=== PATIENT | female | born 1950 | race Caucasian/White ===

== ENCOUNTER 2018-04-22 17:44 | Inpatient (IN) | payer MEDICARE, OTHER ==
[~2018-04-22] VITALS: Ht 157.5 cm; Wt 60.8 kg
[2018-04-22] MEDS ORDERED: LEVA15HF4 INH (18:18)
[2018-04-22] MEDS ORDERED: GABA-532 PO (18:18)
[2018-04-22] MEDS ORDERED: FLUT16SP BNOSTRILS (18:18)
[2018-04-22] MEDS ORDERED: CYCL10TA9 PO (18:18)
[2018-04-22] MEDS ORDERED: MAGNESIUM HYDROXIDE 30 ML UDC PO PRN (18:30)
[2018-04-22] MEDS ORDERED: ACETAMINOPHEN 325 MG TABLET PO PRN (18:30)
[2018-04-22] MEDS ORDERED: MAG HYDROX/AL HYDROX/SIMETH 30 ML UDC PO PRN (18:30)
[2018-04-22 18:44] VITALS: BP 150/74
--- NOTE | 2018-04-22 18:45 | NUR ---
PT. ARRIVED IN THE UNIT VIA A WHEELCHAIR FROM ER AND WHEELED BY ER STAFF. PT. CAME FROM [facility] AND ADMITTED ON [address] SWEET MADE AWARE OF THE ADMISSION, CONTRABAND DONE, V/S TAKEN AND WILL ENDORSE TO THE INCOMING NURSE FOR THE COMPLETION OF THE ADMISSION.
--- NOTE | 2018-04-22 19:30 | NUR ---
ADMITTED A 68 Y/O FEMALE FROM [facility], ON 5150 HOLD GD, BASED ON HOLD, PATIENT INCREASED PARANOIA, INCREASED CONFUSION AND HEARING VOICES. PATIENT ADMITTING DX. PSYCHOSIS, MEDICAL DX. ALZHEIMERS, DEMENTIA, ARTHRITIS, ASTHMA, CHRONIC PAIN, IBS, FIBROMYALGIA, OSTEOPENIA, PSORIASIS. UPON FACE TO FACE EVALUATION, PATIENT APPEARED CONFUSED, GUARDED, EASILY AGITATED, DENIES SI/HI/AH/VH, REDIRECTIBLE. BODY CHECK DONE, PICTURE DONE, NO SOB, NO ACUTE DISTRESS, BREATHING EVEN AND UNLABORED, NO S/S OF PAIN AND DISCOMFORT, NOTIFIED FLOOR RUNNER NELSY TO RECONCILE MEDICATION, PATIENT SIGNED PAPER WORKS. ALL NEEDS ATTENDED AND MET, WILL CONTINUE TO MONITOR [id number] FOR SAFETY
[2018-04-22] MEDS ORDERED: FLUTICASONE PROPIONATE 16 GM BOTTLE NS PRN (20:00)
[2018-04-22] MEDS ORDERED: LEVALBUTEROL HCL NEB 1.25 MG/0.5 ML VIAL.NEB NEB PRN (20:00)
[2018-04-22 20:06] VITALS: BP 129/83
[2018-04-22] MEDS: TEMAZEPAM 7.5 MG CAPSULE PO PRN (22:47)
[2018-04-23 07:26] LABS: ALBUMIN 3.6 g/dL (3.4-5.0); BILIRUBIN,TOTAL 0.7 mg/dL (0.2-1.0); CREATININE 0.6 mg/dL (0.6-1.3); POTASSIUM 3.6 mmol/L (3.5-5.1); TOTAL PROTEIN, SERUM 6.4 g/dL (6.4-8.2)
[2018-04-23 07:35] LABS: CHOLESTEROL 236 mg/dL (<200); HDL CHOLESTEROL 68 mg/dL (40-60); LDL 155 mg/dL (0-99); TRIGLYCERIDES 63 mg/dL (30-150)
[2018-04-23 08:00] VITALS: BP 127/86
[2018-04-23] MEDS: GABAPENTIN 100 MG CAPSULE PO SCH ×3 (08:23→16:13)
--- NOTE | 2018-04-23 13:40 | NUR ---
SHADE called the pt's son, Christian ([phone]), and informed him that the pt is currently in the hospital and discussed the initial treatment plan. He stated that the pt lives in a assisted and she can return there but she has left the facility before. He asked the SHADE to speak to the Materials Mgmt Tech, Sebastian Reddy ([phone]), to confirm the plan and also to discuss what can be done for the pt.
[2018-04-23 16:00] VITALS: BP 114/68
[2018-04-23 20:00] VITALS: BP 138/78
[2018-04-23] MEDS: RIVASTIGMINE TARTRATE 1.5 MG CAPSULE PO SCH (22:05)
[2018-04-24 08:00] VITALS: BP 145/93
[2018-04-24] MEDS: GABAPENTIN 100 MG CAPSULE PO SCH ×3 (08:20→16:11)
[2018-04-24] MEDS: RIVASTIGMINE TARTRATE 1.5 MG CAPSULE PO SCH ×2 (08:20→21:16)
[2018-04-24] MEDS: LORAZEPAM 0.5 MG TABLET PO PRN (11:53)
--- NOTE | 2018-04-24 13:07 | NUR ---
SHADE called Sebastian Reddy ([phone]), Legislators of [facility], and left him a voicemail stating that the SW would like to discuss the living situation of the pt to be able to plan a safe discharge accordingly.
--- NOTE | 2018-04-24 13:25 | NUR ---
Sebastian Reddy ([phone]), Flower Grader of [facility], called the SW back and stated that the plan for the pt is to have her return to the facility once she is discharged with the hope that she will be on the most appropriate medication and that she will have some support as well. SW stated that she will keep Mr. Reddy updated in terms of when the pt will be discharged as well as arrange for the post discharge support.
[2018-04-24 16:00] VITALS: BP 100/52
--- NOTE | 2018-04-24 16:18 | NUR ---
Initial Discharge Plan: Pt currently resides at [facility] located at [address] [place] [address], [address] [address]; ([phone]). Per pt, she would like to return to her [facility]. SHADE will work with the pt and the MD regarding appropriate discharge planning. SW will form a safe and proper discharge.
[2018-04-24 20:41] VITALS: BP 106/62
[2018-04-24] MEDS: TEMAZEPAM 7.5 MG CAPSULE PO PRN (22:11)
[2018-04-25 08:00] VITALS: BP 117/59
[2018-04-25] MEDS: RIVASTIGMINE TARTRATE 1.5 MG CAPSULE PO SCH ×2 (08:13→21:06)
[2018-04-25] MEDS: GABAPENTIN 100 MG CAPSULE PO SCH ×3 (08:13→17:05)
[2018-04-25] MEDS: risperiDONE 1 MG TABLET PO SCH ×2 (08:13→21:06)
[2018-04-25] MEDS: LORAZEPAM 0.5 MG TABLET PO PRN ×2 (12:14→20:00)
--- NOTE | 2018-04-25 15:45 | NUR ---
Group note: Pt attended a group session on 04/25/18 at 11AM discussing the topic of what gives them meaning in their lives and what they are looking forward to once they get discharged from the hospital. S: Pt stated that being able to go horseback riding is what brings theo and meaning to life. I believe that when I am with the horses, I bring purpose to them and I gain a gratifying experience as well. O: Pt was present during the group session and was cooperative. Pt appeared to be in a euthymic mood and presented with a distressed affect. Pt appeared to be comfortable and spoke openly about her life. A: Pt understood that she has to keep in mind that she needs to engage in activities that bring theo and happiness into her life but she also has to ensure that she takes care of herself appropriately. P: Pt will continue milieu treatment and medication stabilization.
[2018-04-25 16:00] VITALS: BP 121/62
[2018-04-25 19:54] VITALS: BP 109/68
--- NOTE | 2018-04-25 20:01 | NUR ---
GPS RN NOTES: PT.C/O ANXIOUS YELLING SCREAMING , NOT FOLLOWING ANY REDIRECTIONS ATIVAN 1 MG MG PO PRN GIVEN , WILL CONTINUE TO MONITOR.
[2018-04-25] MEDS: TEMAZEPAM 7.5 MG CAPSULE PO PRN (23:11)
[2018-04-26 08:00] VITALS: BP 103/58
[2018-04-26] MEDS: risperiDONE 1 MG TABLET PO SCH ×2 (08:41→20:20)
[2018-04-26] MEDS: GABAPENTIN 100 MG CAPSULE PO SCH ×3 (08:41→17:11)
[2018-04-26] MEDS: RIVASTIGMINE TARTRATE 1.5 MG CAPSULE PO SCH ×2 (08:41→20:20)
[2018-04-26] MEDS: CYCLOBENZAPRINE 10 MG TABLET PO PRN (08:41)
[2018-04-26 16:00] VITALS: BP 114/66
[2018-04-26 20:00] VITALS: BP 130/76
[2018-04-27 08:00] VITALS: BP 144/77
[2018-04-27] MEDS: RIVASTIGMINE TARTRATE 1.5 MG CAPSULE PO SCH ×2 (09:24→21:03)
[2018-04-27] MEDS: risperiDONE 1 MG TABLET PO SCH ×2 (09:24→21:03)
[2018-04-27] MEDS: GABAPENTIN 100 MG CAPSULE PO SCH ×3 (09:24→16:19)
[2018-04-27] MEDS: CYCLOBENZAPRINE 10 MG TABLET PO PRN (09:25)
--- NOTE | 2018-04-27 09:30 | NUR ---
SHADE called the pt's son, Christian ([phone]), and informed him that the pt has a Probable Cause hearing today and explained that the Hearing Yard Operator will review the pt's case and decide whether or not the hold will be upheld. SHADE explained the options that would be presented in each scenario of the hearing results. SHADE also informed him that the psychiatrist, Dr. Cui, had the plan to discharge the pt early next week. Pt's son stated that he will arrange the car service for the pt when the time of discharge arrives.
[2018-04-27 16:00] VITALS: BP 131/72
[2018-04-27 20:00] VITALS: BP 115/71
[2018-04-27] MEDS: TEMAZEPAM 7.5 MG CAPSULE PO PRN (22:14)
[2018-04-28 08:00] VITALS: BP 102/78
[2018-04-28] MEDS: risperiDONE 1 MG TABLET PO SCH ×2 (08:51→21:05)
[2018-04-28] MEDS: GABAPENTIN 100 MG CAPSULE PO SCH ×3 (08:51→17:18)
[2018-04-28] MEDS: RIVASTIGMINE TARTRATE 1.5 MG CAPSULE PO SCH ×2 (08:51→21:04)
[2018-04-28] MEDS: CYCLOBENZAPRINE 10 MG TABLET PO PRN (08:51)
[2018-04-28 16:00] VITALS: BP 97/63
[2018-04-28 20:00] VITALS: BP 117/69
[2018-04-28] MEDS: TEMAZEPAM 7.5 MG CAPSULE PO PRN (23:24)
[2018-04-29 08:00] VITALS: BP 122/72
[2018-04-29] MEDS: RIVASTIGMINE TARTRATE 1.5 MG CAPSULE PO SCH ×2 (09:12→21:54)
[2018-04-29] MEDS: GABAPENTIN 100 MG CAPSULE PO SCH ×3 (09:12→16:05)
[2018-04-29] MEDS: risperiDONE 1 MG TABLET PO SCH ×2 (09:12→21:54)
[2018-04-29 16:00] VITALS: BP 139/70
[2018-04-29 20:00] VITALS: BP 125/76
[2018-04-29] MEDS: TEMAZEPAM 7.5 MG CAPSULE PO PRN (22:42)
[2018-04-30 08:00] VITALS: BP 137/74
[2018-04-30] MEDS: risperiDONE 1 MG TABLET PO SCH ×2 (09:09→21:09)
[2018-04-30] MEDS: GABAPENTIN 100 MG CAPSULE PO SCH ×3 (09:09→17:32)
[2018-04-30] MEDS: RIVASTIGMINE TARTRATE 1.5 MG CAPSULE PO SCH ×2 (09:09→21:08)
[2018-04-30 16:00] VITALS: BP 114/83
--- NOTE | 2018-04-30 16:20 | NUR ---
Sebastian Reddy ([phone]), Jewelry Appraiser of [facility], called the SW and inquired about when the pt would be discharged. He also stated that he wanted to make sure that the pt will be set up with home health or aftercare and the SW assured him that she will have support arranged at discharge.
--- NOTE | 2018-04-30 16:21 | NUR ---
SHADE called the pt's son, Christian ([phone]), and left him a message on his voicemail stating that the SW does not have a discharge date at the moment but when there is one he will be notified.
[2018-04-30 20:17] VITALS: BP 116/48
[2018-05-01 08:00] VITALS: BP 109/75
[2018-05-01] MEDS: RIVASTIGMINE TARTRATE 1.5 MG CAPSULE PO SCH ×2 (08:56→20:43)
[2018-05-01] MEDS: GABAPENTIN 100 MG CAPSULE PO SCH ×3 (08:56→17:31)
[2018-05-01] MEDS: risperiDONE 1 MG TABLET PO SCH ×2 (08:56→20:43)
--- NOTE | 2018-05-01 12:11 | NUR ---
SW called the pt's son, Christian ([phone]), and informed him that she spoke to the pt's psychiatrist, Dr. Cui, and he stated that the pt will be discharged tomorrow. Pt's son stated that he would call the car service and then provide a time for the pickup to the SW by 4:30PM.
--- NOTE | 2018-05-01 12:12 | NUR ---
SHADE called Sebastian Reddy ([phone]), Log Carrier Operator of [facility], and informed him that the pt will be discharging tomorrow with a car service that the pt's son is arranging via a message on his voicemail.
[2018-05-01 16:00] VITALS: BP 113/55
--- NOTE | 2018-05-01 16:22 | NUR ---
dr jovani guevara and dr. myers in to see pt.
[2018-05-01 20:37] VITALS: BP 113/65
[2018-05-02 08:00] VITALS: BP 122/72
[2018-05-02] MEDS: GABAPENTIN 100 MG CAPSULE PO SCH ×2 (09:10→13:00)
[2018-05-02] MEDS: RIVASTIGMINE TARTRATE 1.5 MG CAPSULE PO SCH (09:11)
[2018-05-02] MEDS: risperiDONE 1 MG TABLET PO SCH (09:11)
--- NOTE | 2018-05-02 13:15 | NUR ---
COMMISSARY REPRESENTATIVE NOTE :PATIENT ALERT ,VERBALLY RESPONSIVE ,VS STABLE ,DENIES SI/HI/AVH .NO C/O PAIN ,NO S/SOF DISTRESS AMBULATORY AND SELF CARE .SEEN BY WITH DISCHARGE ORDERS CALLED WITH DISCHARGE ORDERS .ALL DISCHARGE INSTRUCTION AND PRESCRIPTIONS EXPLAINED TO PATIENT ABLE TO VERBALIZE UNDERSTANDING ,ALL BELONGINGS RETURNED TO PATIENT ,PAPNET DISCHARGE WITH PARTITION ASSEMBLER AT 1315 TO [facility] .
--- NOTE | 2018-05-02 14:45 | NUR ---
SHADE sent a referral for home care to Ludin ([phone]) from [facility] to his email: [email or web address]
--- NOTE | 2018-05-02 14:50 | NUR ---
Discharge Note: Pt was discharged to [facility] located at [address], [facility], [place] [address]; ([phone]). Jeanette ([phone]) picked the pt up at 1PM. Pts son, Christian ([phone]), was notified of the placement. Upon discharge, the pt was in a euthymic mood and presented with a calm affect. Pt denied both suicidal and homicidal ideation as well as auditory and visual hallucinations. Pt stated that she wanted to go home and back to her regular routine. Pt will be under the care of psychiatrist, Dr. Shaka Neely, within two weeks of discharge located at [address] [facility] [address] [facility], [place], [place]; ([phone]) and a referral was faxed to: [phone]. Pt will also be under the care of health counselor, Dr. Germain Brar, located at [address] [facility], [place], [place]; ([phone]).
--- NOTE | 2018-05-07 12:06 | NUR ---
Sebastian Reddy ([phone]), Bundle Shaker of [facility], called the SW and stated that the physician did not receive the discharge packet because it was not sent directly to their office and instead was sent to the overall clinic. SHADE apologized and wrote down the appropriate fax number and sent the discharge packet to Dr. Belinda Tijerina to the fax number: [phone].
== END 2018-05-02 14:08 | DRG 885 ==
LOC: GPS 17:44
PROVIDERS: ADMIT Psychiatry & Neurology Psychiatry; ATTEND Psychiatry & Neurology Psychiatry
DX: F29 Unspecified psychosis not due to a substance or known physiological condition (principal); F01.50 Vascular dementia, unspecified severity, without behavioral disturbance, psychotic disturbance, mood disturbance, and anxiety; G93.40 Encephalopathy, unspecified; F41.9 Anxiety disorder, unspecified; M79.7 Fibromyalgia; J45.909 Unspecified asthma, uncomplicated; G89.29 Other chronic pain; Z85.3 Personal history of malignant neoplasm of breast; M81.0 Age-related osteoporosis without current pathological fracture; M19.90 Unspecified osteoarthritis, unspecified site; K58.9 Irritable bowel syndrome, unspecified; G43.909 Migraine, unspecified, not intractable, without status migrainosus; F02.80 Dementia in other diseases classified elsewhere, unspecified severity, without behavioral disturbance, psychotic disturbance, mood disturbance, and anxiety; G30.9 Alzheimer's disease, unspecified; F22 Delusional disorders; M06.9 Rheumatoid arthritis, unspecified; F31.9 Bipolar disorder, unspecified; F43.10 Post-traumatic stress disorder, unspecified; G47.30 Sleep apnea, unspecified; F20.9 Schizophrenia, unspecified
CPT/HCPCS: 36415; 80053-TC; 80061-TC; 87081-TC